=== PATIENT | female | born 1955 | race Caucasian/White ===

== ENCOUNTER → 2017-03-18 | Outpatient (CLI) | payer OTHER ==
--- NOTE | 2017-03-18 15:24 | RADRPT ---
PROCEDURE: XR pelvis and left hip. CLINICAL INDICATION: pain TECHNIQUE: AP pelvis, frog lateral views of the left hip were performed. COMPARISON: None. FINDINGS: There is normal mineralization and alignment. No acute fracture or osseous lesion is identified. The patient is status post fixation of the left femoral neck and head with fixation screws. There are degenerative changes of the symphysis pubis with joint space narrowing. There is no significant joint space narrowing in the bilateral hips. The soft tissues are unremarkable. RPTAT: AA IMPRESSION: Status post fixation of the left hip. No acute fracture noted. Degenerative changes of the symphysis pubis. .Moose Malik MD, MD Date Time Electronically viewed and signed by .Moose Malik MD, on 03/18/2017 15:23 .S/
--- NOTE | 2017-03-19 06:51 | HKNOTE ---
DATE OF SERVICE: 03/18/2017 CHIEF COMPLAINT: Left hip pain. HISTORY OF PRESENT ILLNESS: Brenda is here for postoperative followup on left hip pinning. The patie nt had a left femoral neck fracture that was stabilized with cannulated screws about 3 weeks ago. T he patient reports decent progress with physical therapy. She is able to ambulate with a cane. She also has chronic pain related to her back, but she is controlling that with medication. PHYSICAL EXAMINATION: GENERAL: Shows a pleasant female. Left hip incisions are healed. Range of motion is limited. The patient is walking with a cane. There is a mild limp on the left side. IMAGING: X-rays of the left hip show an impacted femoral neck fracture that appears to be stable wi th cannulated screws in good position. ASSESSMENT AND PLAN: A 61-year-old female with a left femoral neck fracture that is healing well. The patient is advised to continue her physical therapy and follow up in 6 weeks with repeat x-rays of the hip. Dictated By: CRISTI LUKE/SYLVIA Conf#: [id number] DID#: [id number]
== END | disposition home or self-care (01) ==
LOC: HKI 14:31
PROVIDERS: ATTEND Orthopaedic Surgery
DX: M25.552 Pain in left hip (principal)
CPT/HCPCS: 73502

== ENCOUNTER → 2017-04-29 | Outpatient (CLI) | END | disposition home or self-care (01) ==

== ENCOUNTER → 2017-07-01 | Outpatient (CLI) | END | disposition home or self-care (01) ==

== ENCOUNTER → 2018-03-23 | Outpatient (CLI) | END | disposition home or self-care (01) ==